=== PATIENT | female | born 1965 | race Caucasian/White ===

== ENCOUNTER 2024-07-08 05:22 | Emergency (ER) | payer BC ==
[~2024-07-08] VITALS: Ht 154.9 cm; Wt 86.6 kg
[2024-07-08 05:33] VITALS: PULSE 100; RESP 18; TEMP 98.8
[2024-07-08] MEDS ORDERED: BENZONATATE100 MG PO (06:01)
[2024-07-08] MEDS: DEXAMETHASONE SOD PHOS 10 MG/1 ML VIAL IM ONE (06:12)
[2024-07-08] MEDS ORDERED: DEXAMETHASONE SOD PHOS INJ 4 MG/ML SDV IM ONE (06:15)
[2024-07-08] MEDS ORDERED: DEXAMETHASONE SOD PHOS INJ 4 MG/ML SDV ONE (06:17)
[2024-07-08 06:26] VITALS: BP 140/86; PULSE 100; RESP 18; TEMP 98.8; O2SAT 96
== END 2024-07-08 06:26 | disposition home or self-care (01) ==
LOC: FSED 05:54
DX: R05.9 Cough, unspecified (principal); J06.9 Acute upper respiratory infection, unspecified; Z11.52 Encounter for screening for COVID-19
CPT/HCPCS: 0223U; 83518; 87400; 96372; 99282; J1100 ×2

== ENCOUNTER 2024-07-10 17:26 | Emergency (ER) | payer BC ==
[~2024-07-10] VITALS: Ht 154.9 cm; Wt 86.7 kg
[~2024-07-10 17:26] MED LIST: BENZONATATE100 MG PO
[2024-07-10] MEDS ORDERED: NASACORT16.9 ML (18:14)
[2024-07-10] MEDS ORDERED: DIPHENHYDRAMINE25 M2 PO (18:14)
[2024-07-10] MEDS ORDERED: LEVOFLOXACIN250 MG PO (18:14)
[2024-07-10] MEDS ORDERED: IBU600 MG PO (18:14)
[2024-07-10] MEDS: CIPROFLOXACIN 500 MG TAB PO ONE (18:18)
[2024-07-10 18:30] VITALS: PULSE 74; RESP 16; TEMP 97.9; O2SAT 97
== END 2024-07-10 18:30 | disposition home or self-care (01) ==
LOC: FSED 17:42
DX: R05.9 Cough, unspecified (principal); J40 Bronchitis, not specified as acute or chronic; J02.9 Acute pharyngitis, unspecified; R09.89 Other specified symptoms and signs involving the circulatory and respiratory systems
CPT/HCPCS: 71046; 83518; 87400; 99284